=== PATIENT | female | born 1990 | race Caucasian/White ===

== ENCOUNTER → 2018-12-19 10:50 | Outpatient (CLI) | payer OTHER, SELFPAY | PROVIDERS: Family Provider Internal Medicine; PCP Internal Medicine; Referring Provider Obstetrics & Gynecology; Visit Provider Obstetrics & Gynecology | DX: Z13.79 Encounter for other screening for genetic and chromosomal anomalies (principal) | CPT/HCPCS: 36415 ==

== ENCOUNTER 2019-07-09 22:28 | Inpatient (IN) | payer OTHER, SELFPAY ==
[2019-07-09 22:09] VITALS: BP 139/81; PULSE 82; PULSE 87; TEMP 37.4; O2SAT 98
[2019-07-09 22:20] VITALS: BMI 37.8
[2019-07-09] MEDS: Lactated Ringers 500 ML 999 ML IV (23:04)
[2019-07-09 23:36] LABS: Absolute Lymphocyte Count 2.53 X10^3/uL (0.83-4.51); Absolute Neutrophil Count 8.6 X10^3/uL (2.0-7.7); Basophil# 0.02 X10^3/uL; Basophil% 0.2 % (0-1); Eosinophil# 0.14 X10^3/uL; Eosinophils% 1.1 % (0-5); Hematocrit 37.5 % (37-47); Hemoglobin 12.2 g/dL (12.0-15.0); Lymphocyte # 2.53 X10^3/ul (4.0); Lymphocyte % 20.7 % (19-41); Mean Corp Hgb Conc 32.5 g/dL (32-36); Mean Corpuscular Hgb 28.4 pg (27.0-32.0); Mean Corpuscular Volume 87.4 fL (81-99); Mean Platelet Vol. 9.8 fl (6.2-12.0); Monocyte# 0.85 X10^3/uL; NRBC Flagged by Analyzer 0 % (0-5); Neutrophil # 8.57 X10^3/uL (2.7-7.7); Neutrophil % 70.1 % (47-70); Platelet Count 332 K/mm3 (150-450); RBC Distribution Width CV 13.1 % (11.6-14.6); RBC Distribution Width SD 40.5 fl (35.1-43.9); Red Blood Count 4.29 M/mm3 (4.2-5.4); White Blood Count 12.2 K/mm3 (4.4-11.0)
[2019-07-09] MEDS: Lactated Ringers 1,000 ML 50 ML IV (23:40)
[2019-07-10] VITALS (48 sets, daily range): BP systolic 94–142; BP diastolic 50–94; PULSE 65–97; RESP 16; TEMP 36.7–37.2; O2SAT 93–100
[2019-07-10] MEDS: Lactated Ringers 500 ML 999 ML IV (01:50)
[2019-07-10] MEDS: fentaNYL-bupivacaine (epidural) 100 ML BAG EPIDURAL ×2 (02:45→07:04)
[2019-07-10] MEDS: Oxytocin 30 units/NS 500 ml 30 UNITS/500 ML IV.SOLN IV (05:00)
[2019-07-10] MEDS: Lactated Ringers 1,000 ML 200 ML IV ×2 (07:02→12:06)
[2019-07-10] MEDS: Ondansetron 4 MG/2 ML Vial IV ×2 (07:42→14:39)
--- NOTE | 2019-07-10 08:45 | PCM.HP.OB ---
- Problem List (1) 40 weeks gestation of Status: Acute (2) Rh negative state in antepartum period Status: Acute (3) Obesity complicating Status: Acute History Date of Admission: 07/10/19 Final AUGIE: 07/07/19 Gestational age: 40 Weeks and 3 Days History of this : This is a 29 year-old, G 2, P 0010, at 40 weeks gestational age who presents in labor. Medical History: Medical History (Last Updated 07/10/19 @ 08:[address] Berta Escalante, DO) Anemia D64.9 IBS (irritable bowel syndrome) K58.9 Allergies No Known Allergies Allergy (Verified 07/09/19 22:21) Home Medications: Home Medications Docusate Sodium [Colace] 100 mg PO DAILY 07/09/19 Magnesium 250 mg PO DAILY 07/09/19 Vits [Prenatabs FA] 1 tab PO DAILY 07/09/19 Smoking Status: Never smoker Number of Fetus(es): 1 NST - FHR Rate Baby A FHR Category:: Category I History Past Pregnancies: Past Pregnancies Delivery Date Name GA/ Weeks Outcome Route Wt Sex Labor Length Anesthesia Delivery Location Provider FOB Labs: GBS neg Hgb 12.3, Plt 302 1 hr GTT 105 B negative Ab screen neg Syphilis NR RI Hep B neg HIV NR GC/CT neg UDS neg Expected Delivery Method: Spontaneous Vaginal Physical Exam Vitals: Vital Signs Temp Pulse BP Pulse Ox 99.0 F 76 112/68 95 07/10/19 07:09 07/10/19 08:30 07/10/19 08:30 07/10/19 07:10 Assessment/Plan All Active Problems 40 weeks gestation of (Acute) Rh negative state in antepartum period (Acute) Obesity complicating (Acute) This is a 29 year-old, G 2, P 0010, at 40 weeks gestational age who is admitted for labor management. Presented with regular ctx's at 4 cm dilated. Now completely dilated. - GBS neg - Epidural for pain control - Routine intrapartum care - EFW < 4500g and pelvis adequate, anticipate vaginal delivery
[2019-07-10] MEDS: Oxytocin 30 units/NS 500 ml 30 UNITS/500 ML IV.SOLN 334 UNITS IV (13:58)
[2019-07-10] MEDS: Methylergonovine 0.2 MG/ML Ampul IM (14:02)
[2019-07-10] MEDS: Carboprost Tromethamine 250 MCG/ML Ampul IM (14:06)
[2019-07-10] MEDS: miSOPROStol 200 MCG Tablet 1000 MCG VAGINAL (14:25)
--- NOTE | 2019-07-10 14:41 | OP.PCM_ITS ---
Problem List (1) 40 weeks gestation of Status: Acute (2) Rh negative state in antepartum period Status: Acute (3) Obesity complicating Status: Acute Report of Operation Date of Procedure: 07/10/19 Pre-Operative Diagnosis: 40 week gestation, primparous patient, labor Post-Operative Diagnosis: As above Surgery/Procedure Performed:: Description of Surgical Findings:: Patient was pushing for over 3 hours. Good maternal effort. Suspected OP position, but baby was delivered in OA position. Normal appearing placenta with 3 vessel cord. Type of Anesthesia:: Epidural Special Medications: Methergine, hemabate, cytotec Specimen's removed: Placenta Drains: Talavera Estimated Blood Loss (mL): 500 Description of Procedure: Patient was complete and pushing for over 3 hours. Suspected occiput posterior position after 1 hour of pushing. Placed patient in hands and knees for 30 minutes and pushed in this position. Contraction pattern was very irregular. The Pitocin drip was continued to be titrated up. She had coupling of contractions with a long delays in between her contractions. After over 3 hours of pushing, the head of the was delivered and a loose nuchal cord x2 was noted. The was delivered through the nuchal cord. Anterior shoulder, posterior shoulder, followed by body of infant was delivered without any force or delay. A vigorous viable female infant was delivered atraumatically and placed on maternal abdomen. The cord was clamped and cut after a 60 sec delay. The placenta was delivered with fundal massage and normal-appearing with a three-vessel cord. Uterus was explored and noted to be boggy with retained membranes. The placental membranes were removed manually 3 times. Uterine mass age was started. Methergine and Hemabate were given. The fundus was then firm and bleeding was hemostatic. A first-degree vaginal laceration was noted and repaired in usual fashion. Rectal Cytotec was placed. Instrument and sponge counts were correct. Vaginal sweep was performed. Grafts/Implants Used: None - Complications None - Admit VTE Documentation VTE Present on Admission: No Vaginal Delivery Amniotic Membrane Rupture Type: Artificial Amniotic Fluid Description: Clear Type of Anesthesia: Epidural Presentation: Vertex Placental Delivery Description: Expressed Cord Vessel Description: 3 Vessels Nuchal Cord Compression: Without compression Cord Entanglement: Around neck x 2, loose Drain: Talavera to straight drain Infant A gender: Female (1 minute): 9 (5 minute): 9 Episiotomy Description: None Laceration: 1st degree Medications given after delivery: IV Pitocin, IM Methergin, IM Hemabate Complications: None
[2019-07-10] MEDS: Ibuprofen 600 MG Tablet PO ×2 (15:25→23:45)
[2019-07-10] MEDS: Cefazolin 2 GM in 0.9% Normal Saline 100 ML IV (15:39)
[2019-07-10] MEDS: Acetaminophen 500 MG Tablet 1000 MG PO (18:16)
[2019-07-11 04:00] VITALS: BP 103/43; PULSE 69; RESP 16; TEMP 36.9
[2019-07-11 05:17] LABS: Hematocrit 29.1 % (37-47); Hemoglobin 9.5 g/dL (12.0-15.0); Mean Corp Hgb Conc 32.6 g/dL (32-36); Mean Corpuscular Hgb 28.5 pg (27.0-32.0); Mean Corpuscular Volume 87.4 fL (81-99); Mean Platelet Vol. 9.5 fl (6.2-12.0); Platelet Count 244 K/mm3 (150-450); RBC Distribution Width CV 13.1 % (11.6-14.6); RBC Distribution Width SD 40.9 fl (35.1-43.9); Red Blood Count 3.33 M/mm3 (4.2-5.4); White Blood Count 13.9 K/mm3 (4.4-11.0)
[2019-07-11] MEDS: Ibuprofen 600 MG Tablet PO ×2 (07:55→15:25)
--- NOTE | 2019-07-11 08:25 | PCM.PN.OB ---
Patient Problems: Active and Suspected Problems (Last Updated 07/10/19 @ 08:[address] Berta Escalante, DO) 40 weeks gestation of (Acute) Rh negative state in antepartum period (Acute) Obesity complicating (Acute) Subjective: Patient doing well. Denies lightheadedness, dizziness, chest pain, shortness of breath, leg pain. She is ambulating and voiding without difficulty. Lochia is normal. She is tolerating a regular diet without nausea or vomiting. She desires to go home today. - Physical Exam Vitals/I&O's: Vital Signs Temp Pulse Resp BP Pulse Ox 98.4 F 69 16 103/43 L 97 07/11/19 04:00 07/11/19 04:00 07/11/19 04:00 07/11/19 04:00 07/10/19 15:21 Weight: 227 lb 8 oz Body Mass Index (BMI) 37.8 Intake and Output for Last 24 Hours 07/09/19 07/10/19 07/11/19 23:59 23:59 23:59 Intake Total 500 / 500 3880.20 / 3880.20 Output Total 3150 / 3150 Balance 500 / 500 730.20 / 730.20 General: Alert, No apparent distress HEENT: Atraumatic Abdomen: Soft, Non Tender, - - FF@U Extremities: No Calf Tenderness Skin: No rashes Neurological: Neuro grossly intact Psych/Mental Status: Normal Affect, Appropriate Microbiology Past 72 Hours 07/09/19 22:50 Mucosa - Nasopharyngeal Coronavirus COVID-19 PCR - Final Laboratory Results 07/10/19 16:15: Screen NEGATIVE, Baby's Blood Type AB POSITIVE, Baby's ZAC NEGATIVE 07/11/19 05:10: WBC 13.9 H, RBC 3.33 L, Hgb 9.5 L, Hct 29.1 L, MCV 87.4, MCH 28.5, MCHC 32.6, RDW Std Deviation 40.9, RDW Coeff of Meeta 13.1, Plt Count 244, MPV 9.5 Current Medications Acetaminophen (Tylenol) 1,000 mg PO Q8H PRN PRN PRN Reason: Pain Score 1-3/10 Last Admin: 07/10/19 18:16 Dose: 1,000 mg Documented by: Bisacodyl (Dulcolax) 10 mg RECTAL UD PRN PRN Reason: If no BM Dibucaine (Dibucaine) 1 applic TOPICAL TID PRN PRN; Protocol PRN Reason: Discomfort Hydrocortisone (Hytone) 1 applic TOPICAL TID PRN PRN; Protocol PRN Reason: Discomfort Ibuprofen (Motrin) 600 mg PO Q6H PRN PRN PRN Reason: Pain Score 1-3/10 Last Admin: 07/11/19 07:55 Dose: 600 mg Documented by: Methylergonovine Maleate (Methergine) 0.2 mg IM X1 PRN PRN Reason: Excess bleeding/uterine atony Last Admin: 07/10/19 14:02 Dose: 0.2 mg Documented by: Ondansetron HCl (Zofran) 4 mg IV Q4H PRN PRN PRN Reason: Nausea Senna/Docusate Sodium (Senokot-S, Carlita-Colace) 1 - 2 tablet PO DAILY PRN PRN PRN Reason: Constipation Simethicone (Mylicon) 80 mg PO PCHS PRN PRN Reason: Indigestion/Stomach pain Sodium Chloride () 5 - 15 ml IV UD PRN PRN Reason: SALINE FLUSH Medical Necessity - Tobacco Use Smoking Status: Never smoker Assessment/Plan All Active Problems (Last Updated 07/10/19 @ 08:[address] Berta Escalante, DO) 40 weeks gestation of (Acute) Rh negative state in antepartum period (Acute) Obesity complicating (Acute) Patient is day 1 from a spontaneous vaginal delivery. She is doing well and desires to go home today. Discussed hemoglobin of 9.5 and iron replacement at home. Reviewed discharge instructions and follow-up in the office.
--- NOTE | 2019-07-11 08:28 | DCINST_ITS ---
Discharge Diet: No Restrictions Discharge Activity: Return to Normal Activity, May Shower, May Take a Tub Bath May resume sexual activity in: 6 weeks Ice area for (Minutes): 15 Weight Bearing Status: Weight bearing as tolerated Lifting Restrictions: None Call your doctor if you observe: Fever of 101 or Higher, Inability to urinate, Inability to have a bowel movement, Using more than one pad per hour, Shortness of breath, Dizziness, Fainting spells, Chest pain, Increased palpitations (irregular heartbeat), Calf discomfort, Uncontrolled pain Cleanse incision/area with: Soap & Water Additional Instructions: If you experience any of the following, contact your healthcare provider. * Bleeding that soaks a pad every hour for 2 hours * Fever 100.4 or higher * Unrelieved incision or abdominal pain * Swelling, redness, discharge or bleeding from your incision or episiotomy site * Your incision begins to separate * Problems urinating (including inability to urinate or burning while urinating). * Visual changes * Severe headache * Flu-like symptoms * Pain or redness in one of both of your breasts * Pain, warmth, tenderness or swelling in your legs, especially the calf area * Frequent nausea and vomiting * Symptoms of depression or anxiety If you experience any of the following, call 911 or go to the nearest Emergency Room. * Chest pain * Problems breathing * Seizure activity * Partial or complete paralysis of a body part, slurred speech, weakness or drooping of the face, or a sudden inability to walk or hold your balance Allergies/Adverse Reactions: Allergies No Known Allergies Allergy (Verified 07/09/19 22:21) Medications to take at Discharge Docusate Sodium [Colace] 100 mg PO DAILY 07/09/19 Magnesium 250 mg PO DAILY 07/09/19 Vits [Prenatabs FA] 1 tab PO DAILY 07/09/19 Ferrous Sulfate 325 mg PO DAILY #60 tab 07/11/19 The following prescriptions were given: Ferrous Sulfate 325 mg PO DAILY #60 tab Prescription Printed Please Follow Up With: Berta Escalante DO When: 6 weeks for visit. Can also schedule a virtual at 1- 2 weeks Primary Care Physician: Xander Batista MD [Primary Care Provider] - Test Results: Test results from this visit will be discussed in further detail at your follow- up appointment, if applicable.
[2019-07-11 09:26] VITALS: BP 112/61; PULSE 84; RESP 18; TEMP 36.7
[2019-07-11 14:00] VITALS: BP 114/72; PULSE 85; RESP 18; TEMP 36.5
== END 2019-07-11 18:30 | disposition home or self-care (01) | DRG 807 ==
LOC: WPOUT 22:31 → WP 22:31
PROVIDERS: Admitting Provider Obstetrics & Gynecology; PCP Internal Medicine; Referring Provider Obstetrics & Gynecology; Visit Provider Obstetrics & Gynecology
DX: O99.214 Obesity complicating childbirth (principal); E66.9 Obesity, unspecified; O72.2 Delayed and secondary postpartum hemorrhage; O69.81X0 Labor and delivery complicated by cord around neck, without compression, not applicable or unspecified; O70.0 First degree perineal laceration during delivery; O99.02 Anemia complicating childbirth; D64.9 Anemia, unspecified; O99.62 Diseases of the digestive system complicating childbirth; K58.9 Irritable bowel syndrome, unspecified; Z67.91 Unspecified blood type, Rh negative; Z3A.40 40 weeks gestation of pregnancy; Z37.0 Single live birth
CPT/HCPCS: 59025; 59050; 85025; 85027; 85461; 86850; 86900; 86901; 87635; 90384; 94760; 99218; G2023; J7120; G0378; J2405; J2790; U0004

== ENCOUNTER 2021-02-24 19:55 | Inpatient (IN) | payer OTHER, SELFPAY ==
[2021-02-24] VITALS (17 sets, daily range): BP systolic 118–134; BP diastolic 71–88; PULSE 76–103; TEMP 36.2–36.7; O2SAT 95–100; BMI 35.6
--- NOTE | 2021-02-24 20:19 | HP.PCM.OB_ITS ---
HPI - General General Date of Admission: 02/24/21 HPI Narrative DAVONTE HORTON, is a 31 F who presents in active labor at term. 39w3d. . uncomplicated. Maternal Data Information AUGIE Calculator Estimated Delivery Date Method Current WG Current Estimate 02/28/21 Manual 39w 3d PFSH PFS Medical History (Updated 02/24/21 @ 22:12 by Lucila Whitt CNM) Anemia IBS (irritable bowel syndrome) Home Medications docusate sodium 100 mg PO PRN PRN 07/09/19 [History Last Taken 07/08/19] vit,[id number] 1 tab PO DAILY 07/09/19 [History Last Taken 02/23/21] Allergy/AdvReac Type Severity Reaction Status Date / Time No Known Allergies Allergy Verified 02/24/21 19:44 Surgical History (Updated 02/24/21 @ 20:38 by Ksenia Catherine) History of surgery Social History Smoking Status: Never smoker History Elective abortions Hx Para 1 Spontaneous abortions Hx # Term Pregnancies Ectopic pregnancies Hx # Pregnancies Multiple births # of living children NST FHR Rate Baby A Baseline: 145 Variability:: Moderate Accelerations:: 15 x 15 Decelerations:: None FHR Category:: Category I Uterine Activity:: Irregular ROS Constitutional Constitutional: Reports systems reviewed and no addt'l complaints, except as documented; Denies headache(s) Eyes Eyes: Denies acute decrease in peripheral vision, blurry vision or change in vision ENT HEENT: Reports systems reviewed and no addt'l complaints, except as documented Cardiovascular Cardiovascular: Denies chest pain or dizziness Respiratory/Chest Respiratory/Chest: Denies cough, dyspnea, dyspnea on exertion, shortness of breath at rest or shortness of breath with exertion Gastrointestinal Gastrointestinal: Denies abdominal pain, diarrhea, nausea or vomiting Genitourinary Genitourinary: Denies abdominal discomfort or movement Musculoskeletal Musculoskeletal: Denies limited range of motion Integumentary Integumentary: Reports systems reviewed and no addt'l complaints, except as doc umented Neurologic Neurologic: Reports systems reviewed and no addt'l complaints, except as documented Psychiatric Psychiatric: Reports systems reviewed and no addt'l complaints, except as documented Endocrine Endocrinology: Reports systems reviewed and no addt'l complaints, except as documented Hematologic/Lymphatic Hematologic/Lymphatic: Reports systems reviewed and no addt'l complaints, except as documented Allergic/Immunologic Allergic/Immunologic: Reports systems reviewed and no addt'l complaints, except as documented Vital Signs Vital Signs Vital Signs: 02/24/21 19:49 02/24/21 20:15 Pulse Rate 96 89 Blood Pressure 134/87 H BP Systolic 134 BP Diastolic 87 Pulse Ox 98 Weight Weight: 213 lb 13.574 oz Body Mass Index (BMI) 35.6 Physical Exam Const alert and oriented x3 General Appearance: cooperative Orientation / Consciousness: awake, oriented to person, oriented to place and oriented to time Exam Limitations: no limitations HEENT normocephalic Head and Scalp: normal to inspection, normocephalic and atraumatic Face and Sinus: normal facial exam Eyes General Eye: normal appearance of both eyes Neck full ROM Chest Chest: symmetrical chest wall rise Resp normal respiratory effort and normal air movement Auscultation: clear to auscultation bilaterally Cardio regular rate, regular rhythm, S1 normal heart sound, S2 normal heart sound, no murmurs, no rub, no gallops and no clicks GI normal to inspection, nondistended, normoactive bowel sounds and non-tender appearance of the vagina normal Bladder / Kidney Exam: no CVA tenderness Manual OB Exam: estimated gestational size appropriate, presentation cephalic, dilated 5, effaced 80 and station -1 Back/Spine normal ROM Extremity normal to inspection and full ROM Skin no rashes or lesions noted Neuro oriented x3, CN's II-XII intact bilaterally and moves all extremities Sensorium / Orientation: awake, alert and oriented to person Motor Exam: clonus absent Deep Tendon Reflexes: Rt Patellar (L4): 2+ and Lt Patellar (L4): 2+ Labs Labs Labs: Blood Type B NEGATIVE Antibody Screen NEGATIVE Hct 34.3 % (37-47) L Hgb 11.4 g/dL (12.0-15.0) L Rhogam given: Yes Miscellaneous Test HBsAG negative HepC negative RPR negative HIV negative GBS negative Rubella Immune B negative, antibody screen negative Assessment & Plan (1) 40 weeks gestation of : (2) Rh negative state in antepartum period: (3) Obesity complicating : (4) Active labor at term: PLAN: 1) Admit to labor and delivery 2) Routine labs 3) IV saline 4) Intermittent auscultation 5) AROM clear fluid 6) Planning unmedicated 7) notified of delivery
[2021-02-24 20:34] LABS: Absolute Lymphocyte Count 2.14 X10^3/uL (0.83-4.51); Absolute Neutrophil Count 7.8 X10^3/uL (2.0-7.7); Basophil# 0.01 X10^3/uL; Basophil% 0.1 % (0-1); Eosinophil# 0.13 X10^3/uL; Eosinophils% 1.2 % (0-5); Hematocrit 34.3 % (37-47); Hemoglobin 11.4 g/dL (12.0-15.0); Lymphocyte # 2.14 X10^3/ul (0.83-4.51); Lymphocyte % 19.7 % (19-41); Mean Corp Hgb Conc 33.2 g/dL (32-36); Mean Corpuscular Hgb 26.6 pg (27.0-32.0); Mean Corpuscular Volume 80.1 fL (81-99); Mean Platelet Vol. 9.1 fl (6.2-12.0); Monocyte# 0.72 X10^3/uL; Monocyte% 6.6 % (0-10); NRBC Flagged by Analyzer 0 % (0-5); Neutrophil # 7.79 X10^3/uL (2.7-7.7); Neutrophil % 71.9 % (47-70); Platelet Count 325 K/mm3 (150-450); RBC Distribution Width CV 13.1 % (11.6-14.6); Red Blood Count 4.28 M/mm3 (4.2-5.4); White Blood Count 10.8 K/mm3 (4.4-11.0)
[2021-02-24] MEDS: Oxytocin 30 units/NS 500 ml 30 UNITS/500 ML IV.SOLN 334 UNITS IV (21:38)
--- NOTE | 2021-02-24 22:06 | EX.PCM.OBRPT ---
Assessment & Plan (1) Vaginal delivery: (2) First degree perineal laceration: Maternal Data Information Final AUGIE: 03/07/21 Gestational age: 39w3d Vaginal Delivery Maternal Presentation Maternal Presentation: Active Labor Operative Information Date of Procedure: 02/24/21 Pre-Operative Diagnosis: Active Labor Post-Operative Diagnosis: Surgery / Procedure Performed: Spontaneous Vaginal Delivery Type of Anesthesia: Local with 1% Lidocaine Estimated Blood Loss: 350ml Time of Delivery: 21:36 Findings Description of Procedure: Progressed to complete with urge to push. Nitrous for pain management. of viable male over first degree perineal laceration. APGARS 8,9, weight pending. Infant head delivered with body forthcoming. CAN x 1, delivered through. Mouth and nares suctioned for secretions, strong cry. Delayed cord clamping for 2 minutes. Baby with poor tone and color, cord clamped and cut by father of baby. Strong cry and tone returned, remained skin to skin. Pitocin started for active 3rd stage management. Placenta delivered via curtis, intact, 3 vessel cord. Fundus firm. EBL 350 ml. Perineum inspected and revealed first degree perineal laceration. Repaired with 3.0 vicryl and lidocaine. Mom and baby stable, family bonding well. Planning to breastfeed. notified of delivery. Presentation: Vertex and BLAZE Amniotic Membrane Rupture Type: Artificial Amniotic Fluid Description: Clear Placental Delivery Description: Expressed Placenta Disposition: [facility] Cord Vessel Description: 3 Vessels Cord Entanglement: Around neck x 1, loose Nuchal Cord Compression: Without compression A Gender: Male (1 minute): 8 (5 minute): 9 Delayed Cord Clamping: Yes Post Vaginal Delivery Medications Given After Delivery: IV Pitocin Episiotomy Description: None Laceration: Perineal Extension/lac and 1st degree Complication Complications: None
[2021-02-24] MEDS: Ibuprofen 600 MG Tablet PO (22:54)
[2021-02-25 00:04] VITALS: BP 119/73; PULSE 78
[2021-02-25] MEDS: Acetaminophen 500 MG Tablet 1000 MG PO ×2 (01:49→13:13)
[2021-02-25 04:00] VITALS: BP 112/58; PULSE 76; RESP 16; TEMP 36.6
--- NOTE | 2021-02-25 07:08 | PCM.PN.OB ---
Subjective Subjective Doing well per patient and nursing staff. Ambulating and taking PO without difficulty. Voiding and passing flatus. Pain controlled. , services for assistance. Denies headache, visual changes, chest pain, shortness of breath, leg pain or increased bleeding. Lochia normal. Objective Data Objective Data Vital Signs: Vital Signs Temp Pulse Resp BP Pulse Ox 97.8 F 76 16 112/58 L 98 02/25/21 04:00 02/25/21 04:00 02/25/21 04:00 02/25/21 04:00 02/24/21 23:25 Oxygen Delivery Method Room Air Weight: 213 lb 13.574 oz Body Mass Index (BMI) 35.6 Intake & Output: Intake and Output for Last 24 Hours 02/23/21 02/24/21 02/25/21 23:59 23:59 23:59 Intake Total 167 / 167 333 / 333 Output Total 400 / 400 Balance 167 / 167 -67 / -67 Lab / Micro Data Result Diagrams: 02/24/21 20:10 Labs: Laboratory Results - last 24 hr 02/24/21 20:10: WBC 10.8, RBC 4.28, Hgb 11.4 L, Hct 34.3 L, MCV 80.1 L, MCH 26.6 L, MCHC 33.2, RDW Std Deviation 37.0, RDW Coeff of Meeta 13.1, Plt Count 325, MPV 9.1, Immature Gran % (Auto) 0.500, Neut % (Auto) 71.9 H, Lymph % (Auto) 19.7, [place] % (Auto) 6.6, Eos % (Auto) 1.2, Baso % (Auto) 0.1, Absolute Neuts (auto) 7.8 H, Absolute Lymphs (auto) 2.14, Nucleated RBC % 0 02/24/21 20:10: Blood Type B NEGATIVE, Antibody Screen NEGATIVE Micro: Microbiology 02/24/21 20:10 Nasal Secretion SARS-CoV-2 Antigen (Rapid) - Final ROS Constitutional Constitutional: Reports systems reviewed and no addt'l complaints, except as documented; Denies headache(s) Eyes Eyes: Denies acute decrease in peripheral vision, blurry vision or change in vision ENT HEENT: Reports systems reviewed and no addt'l complaints, except as documented Cardiovascular Cardiovascular: Denies chest pain or dizziness Respiratory/Chest Respiratory/Chest: Denies cough, dyspnea, dyspnea on exertion, shortness of breath at rest or shortness of breath with exertion Gastrointestinal Gastrointestinal: Denies abdominal pain, diarrhea, nausea or vomiting Genitourinary Genitourinary: Denies abdominal discomfort Musculoskeletal Musculoskeletal: Denies limited range of motion Integumentary Integumentary: Reports systems reviewed and no addt'l complaints, except as documented Neurologic Neurologic: Reports systems reviewed and no addt'l complaints, except as documented Psychiatric Psychiatric: Reports systems reviewed and no addt'l complaints, except as documented Endocrine Endocrinology: Reports systems reviewed and no addt'l complaints, except as documented Hematologic/Lymphatic Hematologic/Lymphatic: Reports systems reviewed and no addt'l complaints, except as documented Allergic/Immunologic Allergic/Immunologic: Reports systems reviewed and no addt'l complaints, except as documented Physical Exam Const alert and oriented x3 General Appearance: cooperative Orientation / Consciousness: awake, oriented to person, oriented to place and oriented to time Exam Limitations: no limitations HEENT normocephalic Head and Scalp: normal to inspection, normocephalic and atraumatic Face and Sinus: normal facial exam Eyes General Eye: normal appearance of both eyes Neck full ROM Chest Chest: symmetrical chest wall rise Resp normal respiratory effort and normal air movement Auscultation: clear to auscultation bilaterally Cardio regular rate, regular rhythm, S1 normal heart sound, S2 normal heart sound, no murmurs, no rub, no gallops and no clicks GI normal to inspection, nondistended, normoactive bowel sounds and non-tender appearance of the vagina normal Bladder / Kidney Exam: no CVA tenderness Back/Spine normal ROM Extremity normal to inspection and full ROM Skin no rashes or lesions noted Neuro oriented x3, CN's II-XII intact bilaterally and moves all extremities Sensorium / Orientation: awake, alert and oriented to person Motor Exam: clonus absent Deep Tendon Reflexes: Rt Patellar (L4): 2+ and Lt Patellar (L4): 2+ Assessment & Plan (1) First degree perineal laceration: (2) Vaginal delivery: PLAN: 1) PPD #1 2) Routine PP care 3) Pain management 4) Vitals stable 5) Planning D/C home tomorrow
[2021-02-25 08:00] VITALS: BP 108/64; PULSE 72; RESP 18; TEMP 36.6
[2021-02-25] MEDS: Ibuprofen 600 MG Tablet PO ×2 (08:41→17:31)
[2021-02-25] MEDS: Senna/Docusate Sodium 1 Tablet PO (08:42)
[2021-02-25] MEDS: Prenatal Vits Tablet 1 TABLET PO (08:43)
[2021-02-25 13:15] VITALS: BP 110/68; PULSE 87; RESP 16; TEMP 35.9
[2021-02-25 15:50] VITALS: BP 111/74; PULSE 89; RESP 16; TEMP 36.3
[2021-02-25 20:48] VITALS: BP 110/66; PULSE 72; RESP 16; TEMP 36.3
== END 2021-02-25 22:35 | disposition home or self-care (01) | DRG 807 ==
LOC: WPOUT 19:58 → WP 19:58
PROVIDERS: Admitting Provider Advanced Practice Midwife; PCP Internal Medicine; Visit Provider Advanced Practice Midwife
DX: O70.0 First degree perineal laceration during delivery (principal); Z37.0 Single live birth; E66.9 Obesity, unspecified; O99.214 Obesity complicating childbirth; O48.0 Post-term pregnancy; O69.2XX0 Labor and delivery complicated by other cord entanglement, with compression, not applicable or unspecified; Z3A.40 40 weeks gestation of pregnancy
CPT/HCPCS: 12001; 59025; 59050; 85025; 86850; 86900; 86901; 87426; 99218; G0378